=== PATIENT | female | born 2000 ===

== ENCOUNTER 2023-07-13 09:32 | Outpatient (OUT) | payer BC, SELFPAY | END 2023-07-13 09:33 | disposition home or self-care (01) | LOC: NOMS 09:32 | PROVIDERS: PCP Family Medicine; Visit Provider Obstetrics & Gynecology | DX: N92.6 Irregular menstruation, unspecified (principal) ==

== ENCOUNTER 2023-07-13 10:21 | Outpatient (RCR) | payer BC, SELFPAY ==
[2023-07-13 11:13] LABS: HCG Quantitative 26 mIU/mL
[2023-07-16 09:05] LABS: HCG Quantitative 120 mIU/mL
== END 2023-08-09 17:40 | disposition home or self-care (01) ==
LOC: LAB 10:21
PROVIDERS: PCP Nurse Practitioner Family; Visit Provider Obstetrics & Gynecology
DX: N92.6 Irregular menstruation, unspecified (principal)
CPT/HCPCS: 36415; 84702